=== PATIENT | male | born 1980 ===

== ENCOUNTER → 2024-11-16 11:53 | Outpatient (REF) | payer BC, SELFPAY | LOC: DHSLP 11:53 | PROVIDERS: ATTENDING PHYSICIAN Internal Medicine Critical Care Medicine | DX: G47.33 Obstructive sleep apnea (adult) (pediatric) (principal); R09.02 Hypoxemia | CPT/HCPCS: 95800 ==

== ENCOUNTER 2025-06-03 03:30 | Emergency (ER) | payer BC, SELFPAY ==
[2025-06-03 03:32] VITALS: BP 160/100
[2025-06-03 03:49] VITALS: BP 124/82
--- NOTE | 2025-06-03 03:59 | ED.GENMED ---
History of Present Illness
General
Chief Complaint: Abdominal Pain
Source: patient
Time Seen by Provider: 06/03/25 03:53
History of Present Illness
History of Present Illness:
45-year-old male presents to the emergency room complaining of abdominal pain. Pain is located in the upper abdomen. It is crampy in nature. Pain began about 3 or 4 hours ago. Initially tried soaking in a hot tub to see if that would help the
discomfort. He tried moving his bowels which did not change the discomfort. Denies any previous episodes such as this. He denies any previous abdominal operations. Patient does not drink alcohol. He quit drinking alcohol about 3 months ago. No
fever or chills. Patient denies any chest pain or shortness of breath.
Past History
Past History
ED Past Medical History: None
ED Past Surgical History: None
Phy Exam
Physical Exam
Physical Exam:
General: Awake, Alert, Oriented X3. No acute distress.
Vitals: unremarkable
Head: Atraumatic
Eyes: Pupils equal, EOMI
Throat: Airway intact, no exudates
Neck: Trachea midline
Lungs: Clear and equal b/l
Heart: Regular rate, no murmurs
Abd: Soft, positive tenderness to palpation right upper quadrant and epigastric, No pulsatile mass
Neuro: Nonfocal
Skin: Warm, dry, no rash
Extremities: pulses equal b/l, no edema
Course
Orders/Labs/Results
Orders:
Orders
06/03/25 03:35
EKG [Electrocardiogram (*1)] Urgent
Reason for Study: Abdominal Pain
EKG- Treatment ONCE
06/03/25 03:59
0.9% Sodium Chloride 1000 ml [Nss] 1,000 ml IV BOLUS
Ketorolac [Toradol] 15 mg IV NOW STA
US Abdomen Complete/Upper Urgent
Comment:
Reason For Exam: ruq and epigastric abd pain
06/03/25 04:13
Complete Blood Count/With Diff Urgent
Comprehensive Metabolic Panel Urgent
Lipase Urgent
Abnormal Lab Results
06/03/25
04:13
Absolute Monos (auto) 0.7 H 10^3/uL
(0.1-0.6)
Monocytes % 10.6 H %
(1.7-9.3)
Lipase 474 H U/L
(23-300)
06/03/25 04:13
06/03/25 04:13
Vital Signs
Initial and Last Documented VS:
Initial Vital Signs
Temp Pulse Resp BP Pulse Ox
97.8 F 95 22 160/100 97
06/03/25 03:32 06/03/25 03:32 06/03/25 03:32 06/03/25 03:32 06/03/25 03:32
Last Documented Vital Signs
Temp Pulse Resp BP Pulse Ox
97.8 F 76 13 100/72 95
06/03/25 03:32 06/03/25 06:08 06/03/25 06:08 06/03/25 06:07 06/03/25 06:08
MDM/Problems Addressed
Differential Diagnosis Includes:
Pancreatitis, cholecystitis, cholelithiasis with biliary colic, choledocholithiasis
MDM/Problems Addressed:
Labs show very mild elevation lipase. Rest of his labs are unremarkable. Ultrasound shows gallstones and sludge but no biliary duct dilatation nor any findings to suggest acute cholecystitis. Patient feeling better after Toradol. Discussed
hospitalization for acute cholecystectomy versus outpatient management and patient chooses outpatient follow-up with surgery.
*Radiology
Radiology exam reviewed: radiology read reviewed
*Pulse Oximetry
SaO2: 97
Oxygen Mode of Delivery: Room air
Patient hypoxic: no
*EKG
Interpreted by ED Provider?: Yes
Heart Rate: 90
Rate: normal
Rhythm: sinus
[place]: normal axis
Interval: normal interval
QRS Pattern: normal QRS
Ischemia: no ischemia
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
Rate: normal
Interpretation: normal
Heart Rate: 90
Rhythm: sinus
*Critical Care Note
Total Time (30-74mins, 75-104mins- exclusive of procedures): Not Applicable
ED Attending Note
-
Portions of this chart may have been created with voice recognition software.� Occasional wrong word or��sound alike� substitutions may have occurred due to the inherent limitations of voice recognition software.
Discharge Plan
Departure
Patient Disposition: Home (Routine Discharge)
Date of Disposition: 06/03/25
Time of Disposition: 05:59
Patient with high blood pressure during this ER visit?: No
Condition: Good
Discharge Problem:
Abdominal pain, Biliary colic
Instructions: Gallstones (DC), Low-fat diet, Abdominal Pain
Prescriptions:
No Action
permethrin 1 APPLIC cream
60 gm TP ONCE Qty: 1 0RF
triamcinolone acetonide 1 APPLIC ointment
1 applic topical BID PRN (Reason: itch) Qty: 1 0RF
Referrals:
Karan Acosta MD [Active, Surgical]
Activity Restrictions/Additional Instructions:
Your abdominal pain is likely from gallstones. Your blood work is reassuring but your ultrasound shows sludge and a large gallstone. Because you are feeling better treatable for you to go home but you should follow-up with a surgeon. I given you
contact information for a general surgeon. You should maintain a low-fat diet until you do so.
Interventions
Interventions:
*Risk Screen - Suicide Last Done: 06/03/25 03:32
*General Assessment Last Done: 06/03/25 03:32
*Neglect/Abuse Screening Last Done: 06/03/25 03:32
*ED- Fall Risk Assessment Last Done: 06/03/25 04:01
*ED COVID-19 Vaccine History Last Done: 06/03/25 04:01
*ED Influenza Vaccine History Last Done: 06/03/25 04:01
*Nursing Disposition Last Done: 06/03/25 06:05
TR-Odeapl-Vlhipwdmbe Assessment Last Done: 06/03/25 04:01
Discharge Date and Time
Discharge Date/Time: 06/03/25 06:16
Print Language: GEORGIAN
[2025-06-03 04:00] VITALS: BP 122/79; BMI 38.4
[2025-06-03] MEDS: TORADOL 15 MG IV (04:13)
[2025-06-03] MEDS: NSS 1000 IV (04:16)
[2025-06-03 04:24] LABS: Hematocrit 46.9 % (39.0-52.0); Hemoglobin 16.1 g/dL (13.0-18.0); Mean Corp Hgb Conc. 34.3 g/dL (33.0-37.0); Mean Corpuscular Volume 83.2 fL (80.0-94.0); Nucleated Red Blood Cells % 0 % (-); Platelet Count 229 10^3/uL (130-400); Red Cell Dist. Width 12.5 % (11.5-14.5)
[2025-06-03 04:53] LABS: ALT (SGPT) 31 U/L (0-50); AST (SGOT) 25 U/L (17-59); Albumin 5.0 g/dl (3.5-5.0); Alkaline Phosphatase 55 U/L (38-126); Blood Urea Nitrogen 14 mg/dl (9-20); Calcium 9.7 mg/dl (8.4-10.2); Carbon Dioxide 25 mmol/L (22-30); Chloride 107 mmol/L (98-107); Estimated Creatinine Clearance > 125 ml/min; Glucose 96 mg/dl (70-99); Lipase 474 U/L (23-300); Potassium 4.2 mmol/L (3.5-5.1); Sodium 141 mmol/L (135-145); Total Protein 7.7 g/dl (6.3-8.2); eGFR > 60.00
[2025-06-03 06:07] VITALS: BP 100/72
== END 2025-06-03 06:16 | disposition home or self-care (01) ==
LOC: EMR 03:30
PROVIDERS: EMERGENCY PHYSICIAN Emergency Medicine; FAMILY PHYSICIAN Student in an Organized Health Care Education/Training Program
DX: R10.9 Unspecified abdominal pain (principal); K80.70 Calculus of gallbladder and bile duct without cholecystitis without obstruction
CPT/HCPCS: 99284; 96374; 76700; 80053; 83690; 85025; 93005